=== PATIENT | male | born 1965 | race Caucasian/White ===

== ENCOUNTER 2018-03-20 11:21 | Emergency (ER) | payer BC ==
[2018-03-20] MEDS ORDERED: XYLOCAINE 2% HCL 20 ML MDV ONE (11:46)
--- NOTE | 2018-03-20 12:23 | ERPHSYRPT ---
- History of Present Illness Time Seen by Provider: 03/20/18 11:40 Source: patient Exam Limitations: clinical condition Patient Subjective Stated Complaint: pt has laceration to left thumb,cut with knife, has 1 cm laceration,no bleeding Triage Nursing Assessment: has laceration to left finger from pocket knife Physician History: PATIENT SUSTAINED LEFT THUMB LACERATION WHILE USING POCKET KNIFE, DENIES NUMBNESS, TINGLING OR WEAKNESS IN FINGER. Occurred: just prior to arrival Method of Injury: incised Quality: constant Severity of Pain-Max: mild Severity of Pain-Current: mild Extremities Pain Location: thumb: left Modifying Factors: Improves With: nothing Associated Symptoms: none Allergies/Adverse Reactions: No Known Drug Allergies Allergy (Unverified 03/20/18 11:30) Hx Tetanus, Diphtheria Vaccination/Date Given: (7 years) Hx Influenza Vaccination/Date Given: Yes Hx Pneumococcal Vaccination/Date Given: Yes Immunizations Up to Date: Yes - Review of Systems Musculoskeletal: Injury Neurological: No Symptoms - Past Medical History Pertinent Past Medical History: Yes Cardiac History: High Cholesterol Endocrine Medical History: Diabetes Type II - Past Surgical History Past Surgical History: Yes Gastrointestinal: Hernia Repair - Social History Smoking Status: Never smoker Exposure to second hand smoke: No Drug Use: none Patient Lives Alone: No - Nursing Vital Signs Nursing Vital Signs: Initial Vital Signs Temperature 98.3 F 03/20/18 11:25 Pulse Rate 90 03/20/18 11:25 Respiratory Rate 18 03/20/18 11:25 Blood Pressure 115/74 03/20/18 11:25 O2 Sat by Pulse Oximetry 98 03/20/18 11:25 Pain Scale Pain Intensity 0 - Physical Exam General Appearance: alert Hand Exam: normal ROM (THERE IS A 1.2 CM LACERATION LEFT THUMB DORSUM DISTAL ASPECT OF PROXIMAL PHALANGX, INCISIONAL WOUND WITH COMPLETE TRANSECTION OF EXTENSOR TENDON. FULL RANGE OF MOTION MCP AND DIP JOINTS.), laceration DTR - Upper Extremity Exam: bicep (R): 2+, bicep (L): 2+, tricep (R): 2+, tricep (L): 2+ Neuro/Tendon Exam: normal sensation, normal motor functions Mental Status Exam: alert, oriented x 3, cooperative SpO2 Interpretation: normal SpO2: 98 Oxygen Delivery: Room Air Procedures - Laceration/Wound Repair Left Arm Wound Location: Left (THUMB) Wound Length (cm): 1.2 Wound's Depth, Shape: linear Wound Explored: clean Irrigated: Yes Hibiclens Prep: Yes Anesthesia: local, 2% Lidocaine Volume Anesthetic (ccs): 4 Suture Size/Type: 4-0 Number of Sutures: 4 Deep Layer Suture Size/Type: 4:0 Number Deep Layer Sutures: 4 Ordered Tests: Active Orders 24 hr Category Date Time Status Splint STAT Care 03/20/18 12:16 Active Medication Summary Discontinued Medications Generic Name Dose Route Start Last Admin Trade Name Krista PRN Reason Stop Dose Admin Lidocaine HCl Confirm 03/20/18 11:46 Xylocaine 2% Hcl 20 Ml Mdv Administered 03/20/18 11:47 Dose 1 ml .ROUTE .[facility] Testing ONE - Progress Progress: improved Progress Note: 03/20/18 12:28 APPLICATION ALUMINUM SPLINT LEFT THUMB, PATIENT'S TETNUS CURRENT Counseled pt/family regarding: diagnosis, need for follow-up - Departure Time of Disposition: 12:34 Departure Disposition: Home Clinical Impression: LACERATION LEFT THUMB, TRANSECTION EXTENSOR TENDON LEFT THUMB Condition: Stable Critical Care Time: No Referrals: ESME BURNETT [Primary Care Provider] - Additional Instructions: CALL HAND SURGEON DR Spence TO SCHEDULE APPOINTMENT FOR THUMB EXTENSOR TENDON LACERATION. MAINTAIN ALUMINUM SPLINT UNTIL EVALUATED BY HAND SURGEON. ANTIBIOTIC AUGMENTIN 875MG TWICE DAILY FOR 10 DAYS. ULTRAM 50MG EVERY 6 HOURS NEEDED FOR PAIN. WATCH FOR SIGNS OF INFECTION REDNESS, SWELLING OR DRAINAGE. Prescriptions: Tramadol HCl 50 mg [Ultram 50 mg] 50 mg PO Q6HPRN PRN #15 tablet PRN Reason: Pain Amox Tr/Potass Clav. 875 mg [Augmentin 875-125 Tablet] 875 mg PO BID #20 tablet
[2018-03-20 13:03] VITALS: BP 112/70; PULSE 84; O2SAT 99
[2018-03-21] MEDS ORDERED: XYLOCAINE 2% HCL 20 ML MDV IJ ONE (06:54)
== END 2018-03-20 13:03 | disposition home or self-care (01) ==
LOC: ED 11:21
PROC: 0HQGXZZ Repair Left Hand Skin, External Approach (ICD-10-PCS; principal; 2018-03-20)
DX: S56.322A Laceration of extensor or abductor muscles, fascia and tendons of left thumb at forearm level, initial encounter (principal); W26.0XXA Contact with knife, initial encounter
CPT/HCPCS: 12001; 96372; 99283